=== PATIENT | female | born 1985 | race African-American/Black ===

== ENCOUNTER 2016-05-25 07:54 | Emergency (ER) | payer MEDICAID ==
[2016-05-25 08:57] LABS: HEMATOCRIT 25.9 % (36.0-47.0); HEMOGLOBIN 9.1 g/dL (12.0-15.5); HGB HCT DIFFERENCE 1.4; MEAN CORPUSCULAR HEMOGLOBIN 35.8 pg (27.0-33.4); MEAN CORPUSCULAR HGB CONC 35.2 g/dL (32.0-36.0); MEAN CORPUSCULAR VOLUME 102 fl (80-97); RED BLOOD COUNT 2.55 10^6/uL (3.72-5.28); RED CELL DISTRIBUTION WIDTH 21.7 % (11.5-14.0); WHITE BLOOD COUNT 18.5 10^3/uL (4.0-10.5)
[2016-05-25 09:15] LABS: ALANINE AMINOTRANSFERASE 24 U/L (9-52); ALBUMIN 4.5 g/dL (3.5-5.0); ALKALINE PHOSPHATASE 85 U/L (38-126); ANION GAP 14 (5-19); ASPARTATE AMINO TRANSFERASE 36 U/L (14-36); BILIRUBIN,TOTAL 3.3 mg/dL (0.2-1.3); BLOOD UREA NITROGEN 5 mg/dL (7-20); CALCIUM 10.2 mg/dL (8.4-10.2); CARBON DIOXIDE 26 mmol/L (22-30); CHLORIDE 104 mmol/L (98-107); CREATINE KINASE 26 U/L (30-135); CREATININE RESULT 0.52 mg/dL (0.52-1.25); GLUCOSE 95 mg/dL (75-110); POTASSIUM 4.1 mmol/L (3.6-5.0); TOTAL PROTEIN 8.4 g/dL (6.3-8.2)
[2016-05-25 09:38] LABS: APPEARANCE,URINE SLIGHTLY-CLOUDY; BILIRUBIN,URINE NEGATIVE (NEGATIVE); GLUCOSE, URINE NEGATIVE (NEGATIVE); KETONES,URINE NEGATIVE (NEGATIVE); LEUKOCYTE ESTERASE,URINE NEGATIVE (NEGATIVE); NITRITE,URINE NEGATIVE (NEGATIVE); PROTEIN,URINE 30 mg/dL (NEGATIVE); URINE SPECIFIC GRAVITY 1.012
[2016-05-25] MEDS ORDERED: NORMAL SALINE 1000 ML 1,000 ML IV PRN (09:45)
[2016-05-25 09:56] LABS: ANISOCYTOSIS 2+; BAND NEUTROPHILS % (MANUAL) 2 % (3-5); BASOPHILS % (MANUAL) 0 % (0-2); EOSINOPHILS % (MANUAL) 1 % (0-6); LYMPHOCYTES % (MANUAL) 35 % (13-45); NUCLEATED RED BLOOD CELLS 3 /100 WBC (0); OVALOCYTES SLIGHT; POIKILOCYTOSIS 2+; POLYCHROMASIA 1+; SCHISTOCYTES SLIGHT; TARGET CELLS SLIGHT; TOTAL CELLS COUNTED 100; TOXIC GRANULATION SLIGHT
[2016-05-25] MEDS ORDERED: KETOROLAC TROMETHAMINE INJ/PF 30 MG/1 ML SDV IV ONE (10:04)
--- NOTE | 2016-05-25 10:10 | ER Document Report ---
ED General - General Chief Complaint: Cold Symptoms Stated Complaint: BACK PAIN Notes: Patient is a 31-year-old female with a past medical history significant for sickle cell crisis. Patient states that she has had cough, nasal drainage, body aches and sore throat for one week. He sinus pressure, ear pain, productive cough, wheezing, shortness of breath dyspnea. Patient states that she did not receive flu vaccine and she was given otherwise let the symptoms are intercourse but she woke up this morning with bilateral flank and lower back pain. Which she feels is consistent with sickle cell crisis. States her last episode was about 2 months ago and otherwise has been following up with a neurologist due to the fact that she's had 3 TIAs most recently last one in February. Patient otherwise does not follow up with her PCP quite often and she does not have a publicity consultant. At this time she denies any other associated symptom she denies any abdominal pain urinary symptoms. Last bowel movement was yesterday normal, denies any nausea vomiting diarrhea constipation Past medical history significant for TIAs, sickle cell anemia, hypothyroidism noncompliant with her medication needs a refill Past surgical history denies Social history admits to occasional tobacco and alcohol use and denies drug use. Denies any allergies to medication. TRAVEL OUTSIDE OF THE [place] IN LAST 30 DAYS: No - Related Data Allergies/Adverse Reactions: No Known Allergies Allergy (Verified 05/25/16 08:00) Past Medical History - General Information source: Patient - Social History Smoking Status: Current Every Day Smoker Chew tobacco use (# tins/day): Yes Frequency of alcohol use: Occasional Drug Abuse: None Family History: Reviewed & Not Pertinent Patient has suicidal ideation: No Patient has homicidal ideation: No Renal/ Medical History: Denies: Hx Peritoneal Dialysis - Immunizations Immunizations up to date: Yes Hx Diphtheria, Pertussis, Tetanus Vaccination: No Review of Systems - Review of Systems Constitutional: No symptoms reported EENT: See HPI Cardiovascular: No symptoms reported Respiratory: No symptoms reported Gastrointestinal: No symptoms reported Genitourinary: No symptoms reported Female Genitourinary: No symptoms reported Musculoskeletal: See HPI Skin: No symptoms reported Hematologic/Lymphatic: No symptoms reported Neurological/Psychological: No symptoms reported Physical Exam - Vital signs Vitals: Temp Pulse Resp BP Pulse Ox 97.6 F 78 18 144/87 H 96 05/25/16 07:58 05/25/16 07:58 05/25/16 07:58 05/25/16 07:58 05/25/16 07:58 - Notes Notes: PHYSICAL EXAM GENERAL: Alert, interacts well. HEAD: Normocephalic, atraumatic. EYES: Pupils equal, round, and reactive to light. Extraocular movements intact. ENT: Oral mucosa moist, tongue midline. NECK: Full range of motion. Supple. Trachea midline. LUNGS: Clear to auscultation bilaterally, no wheezes, rales, or rhonchi. No respiratory distress. HEART: Regular rate and rhythm. No murmurs, gallops, or rubs. ABDOMEN: Soft, nondistended, nontender. No guarding, rebound, or rigidity.. Bowel sounds present in all 4 quadrants. EXTREMITIES: Moves all 4 extremities spontaneously. No edema, radial and dorsalis pedis pulses 2/4 bilaterally. No cyanosis. NEUROLOGICAL: Alert and oriented x3. Normal speech. PSYCH: Normal affect, normal mood. SKIN: Warm, dry, normal turgor. No rashes or lesions noted. Course - Re-evaluation Re-evalutation: Patient is a 31-year-old female presents emergency department with symptoms for about one week then with sudden onset back pain this morning. Labs today reveal episode of sickle cell crisis. White blood cell count 18.5 which is consistent with her elevated white blood cell count last time she was seen here. Patient is afebrile, no acute distress and hemodynamically stable otherwise. Reticulocyte count is 12.5 for which is elevated per her most recent visit but consistent with a visit back in October. Chest x-ray didn't reveals a small atelectasis at the base of the left lung but otherwise no concern for pneumonia, no UTI. Patient is otherwise feeling well and would like to go home. Patient is stable for discharge and can follow-up with her primary care provider this week 05/25/16 13:05 Per [facility] protocol and guidelines, this case was discussed with supervising physician Dr. Barbara Ozuna prior to discharge - Vital Signs Vital signs: Temp Pulse Resp BP Pulse Ox 97.6 F 78 18 144/87 H 96 05/25/16 07:58 05/25/16 07:58 05/25/16 07:58 05/25/16 07:58 05/25/16 07:58 - Laboratory Result Diagrams: 02/13/17 08:37 05/25/16 08:37 Laboratory results interpreted by me: 05/25/16 05/25/16 05/25/16 08:37 08:37 09:00 WBC 18.5 H RBC 2.55 L Hgb 9.1 L Hct 25.9 L MCV 102 H MCH 35.8 H RDW 21.7 H Band Neutrophils % 2 L Abs Neuts (Manual) 11.1 H Abs Lymphs (Manual) 6.5 H Retic Count (auto) 12.54 H Absolute Retic 0.320 H BUN 5 L Total Bilirubin 3.3 H Creatine Kinase 26 L Total Protein 8.4 H Urine Protein 30 H Urine Urobilinogen 4.0 H Urine Ascorbic Acid 40 H - Diagnostic Test Radiology reviewed: Image reviewed, Reports reviewed Discharge - Discharge Clinical Impression: Sickle cell anemia with crisis Condition: Good Disposition: HOME, SELF-CARE Additional Instructions: Sickle Cell Crisis You have "sickle cell crisis." Sickle cell disease is caused by abnormal hemoglobin. This hemoglobin can deform red blood cells into a sickle shape. These abnormal blood cells can block blood vessels. This causes the pain of sickle cell crisis. Sickle cell crisis can occur any time. But attacks are more likely with acute infection, dehydration, or altitude change. A crisis usually causes pain in the legs, back, abdomen, and chest. Sometimes the pain may ease and return later. The usual treatment is oxygen, pain medication, IV fluids, and treatment of infection. Attacks may take a couple of days to resolve. Return if the pain becomes more severe, or if there are new symptoms. Prescriptions: Oxycodone HCl/Acetaminophen [Percocet 5-325 mg Tablet] 1 - 2 tab PO Q4H PRN #25 tablet PRN Reason: Referrals: MANDO CELESTE MD [Primary Care Provider] - Follow up as needed TRAM LEWIS MD [ACTIVE STAFF] - Follow up in 1 month
[2016-05-25] MEDS ORDERED: MORPHINE SULFATE 10 MG/ML INJ IV ONE (11:24)
[2016-05-25 13:16] VITALS: BP 140/85
== END 2016-05-25 13:16 | disposition home or self-care (01) ==
LOC: ER 07:54
DX: D57.00 Hb-SS disease with crisis, unspecified (principal); M54.5 Low back pain; R05 Cough; J34.89 Other specified disorders of nose and nasal sinuses; J02.9 Acute pharyngitis, unspecified; R10.9 Unspecified abdominal pain; J98.11 Atelectasis; Z86.73 Personal history of transient ischemic attack (TIA), and cerebral infarction without residual deficits; F17.200 Nicotine dependence, unspecified, uncomplicated
CPT/HCPCS: 99284; 96374; 96375; 36415; 82550; 84443; 85025; 85045; 80053; 81001; 87804; 71020; J1885; J2270; J7030

== ENCOUNTER → 2016-05-25 | Outpatient (CLI) | payer OTHER ==
[2016-05-25 16:28] LABS: HEMATOCRIT 23.3 % (36.0-47.0); HEMOGLOBIN 8.2 g/dL (12.0-15.5); HGB HCT DIFFERENCE 1.3; MEAN CORPUSCULAR HEMOGLOBIN 35.7 pg (27.0-33.4); MEAN CORPUSCULAR VOLUME 102 fl (80-97); RED BLOOD COUNT 2.28 10^6/uL (3.72-5.28); RED CELL DISTRIBUTION WIDTH 20.4 % (11.5-14.0); WHITE BLOOD COUNT 22.3 10^3/uL (4.0-10.5)
== END ==
LOC: OD 15:37
DX: D57.1 Sickle-cell disease without crisis (principal); E07.9 Disorder of thyroid, unspecified
CPT/HCPCS: 36415; 85027

== ENCOUNTER 2016-09-27 17:45 | Emergency (ER) | payer SELFPAY ==
[2016-09-27] MEDS ORDERED: NORMAL SALINE 1000 ML 2,000 ML IV PRN (18:57)
[2016-09-27] MEDS ORDERED: MORPHINE SULFATE 10 MG/ML INJ IV ONE ×2 (18:57→23:32)
--- NOTE | 2016-09-27 18:59 | ER Document Report ---
ED Medical Screen (RME) - General Chief Complaint: Sickle Cell Crisis Stated Complaint: BODY PAIN Time Seen by Provider: 09/27/16 18:09 Mode of Arrival: Ambulatory Information source: Patient TRAVEL OUTSIDE OF THE [place] IN LAST 30 DAYS: No - HPI Patient complains to provider of: Sickle cell crisis Onset: This morning Onset/Duration: Gradual Quality of pain: Achy Severity: Moderate Notes: 09/27/16 18:58 Patient is a 31-year-old female who presents to the emergency room complaining of sickle cell crisis with pain all over, mostly concentrated in the right arm which is where her typical crisis pain is, she denies a cough, no congestion, no fever, no chest pain - Related Data Allergies/Adverse Reactions: No Known Allergies Allergy (Verified 09/27/16 18:55) Past Medical History Renal/ Medical History: Denies: Hx Peritoneal Dialysis - Immunizations Immunizations up to date: Yes Hx Diphtheria, Pertussis, Tetanus Vaccination: No Physical Exam - Vital signs Vitals: Temp Pulse Resp BP Pulse Ox 99.1 F 69 16 133/80 H 93 09/27/16 17:58 09/27/16 17:58 09/27/16 17:58 09/27/16 17:58 09/27/16 17:58 Course - Vital Signs Vital signs: Temp Pulse Resp BP Pulse Ox 99.1 F 69 16 133/80 H 93 09/27/16 17:58 09/27/16 17:58 09/27/16 17:58 09/27/16 17:58 09/27/16 17:58
[2016-09-27 20:23] LABS: ALANINE AMINOTRANSFERASE 25 U/L (9-52); ALBUMIN 4.6 g/dL (3.5-5.0); ALKALINE PHOSPHATASE 74 U/L (38-126); ANION GAP 11 (5-19); ASPARTATE AMINO TRANSFERASE 66 U/L (14-36); BILIRUBIN,DIRECT 0.8 mg/dL (0.0-0.4); BILIRUBIN,TOTAL 2.8 mg/dL (0.2-1.3); BLOOD UREA NITROGEN 7 mg/dL (7-20); CALCIUM 9.6 mg/dL (8.4-10.2); CARBON DIOXIDE 25 mmol/L (22-30); CHLORIDE 108 mmol/L (98-107); CREATININE RESULT 0.62 mg/dL (0.52-1.25); GLUCOSE 82 mg/dL (75-110); HEMOGLOBIN 8.8 g/dL (12.0-15.5); HGB HCT DIFFERENCE 1.4; MEAN CORPUSCULAR HEMOGLOBIN 35.1 pg (27.0-33.4); MEAN CORPUSCULAR HGB CONC 35.1 g/dL (32.0-36.0); MEAN CORPUSCULAR VOLUME 100 fl (80-97); POTASSIUM 4.7 mmol/L (3.6-5.0); RED BLOOD COUNT 2.49 10^6/uL (3.72-5.28); RED CELL DISTRIBUTION WIDTH 20.8 % (11.5-14.0); SODIUM 144.3 mmol/L (137-145); TOTAL PROTEIN 8.2 g/dL (6.3-8.2); WHITE BLOOD COUNT 20.2 10^3/uL (4.0-10.5)
[2016-09-27 20:27] LABS: BASOPHILS % (MANUAL) 0 % (0-2); EOSINOPHILS % (MANUAL) 2 % (0-6); LYMPHOCYTES % (MANUAL) 25 % (13-45); NUCLEATED RED BLOOD CELLS 1 /100 WBC (0); TOTAL CELLS COUNTED 100
[2016-09-27 20:31] LABS: ANISOCYTOSIS 2+; OVALOCYTES SLIGHT; POIKILOCYTOSIS 1+; POLYCHROMASIA 1+; TARGET CELLS 2+; TOXIC GRANULATION SLIGHT
--- NOTE | 2016-09-27 21:08 | ER Document Report ---
ED General - General Chief Complaint: Sickle Cell Crisis Stated Complaint: BODY PAIN Time Seen by Provider: 09/27/16 18:09 Mode of Arrival: Ambulatory Notes: Patient is a 31-year-old female with a past medical history of sickle cell disease that comes emergency department for chief complaint of sickle cell crisis. She reports pain that started in her right arm and now she is starting to hurt over the majority of her body. She denies any particular area being worse than the other at this time. She denies fever, vomiting, shortness of breath, abdominal pain, focal numbness or weakness. She denies smoking. She states that she just overexerted over the past couple of days and she thinks she is dehydrated. She takes folic acid, she did not see a underwear cutter, she has never had a transfusion. She denies any other medical history. Significant other at bedside. TRAVEL OUTSIDE OF THE [place] IN LAST 30 DAYS: No - Related Data Allergies/Adverse Reactions: No Known Allergies Allergy (Verified 09/27/16 18:55) Past Medical History - General Information source: Patient - Social History Smoking Status: Former Smoker Chew tobacco use (# tins/day): No Frequency of alcohol use: None Drug Abuse: None Lives with: Family Family History: Reviewed & Not Pertinent Neurological Medical History: Reports: Other - TIA Renal/ Medical History: Denies: Hx Peritoneal Dialysis Surgical Hx: Negative - Immunizations Immunizations up to date: Yes Hx Diphtheria, Pertussis, Tetanus Vaccination: No Review of Systems - Review of Systems Constitutional: No symptoms reported EENT: No symptoms reported Cardiovascular: No symptoms reported Respiratory: No symptoms reported Gastrointestinal: No symptoms reported Genitourinary: No symptoms reported Female Genitourinary: No symptoms reported Musculoskeletal: See HPI Skin: No symptoms reported Hematologic/Lymphatic: No symptoms reported Neurological/Psychological: No symptoms reported Physical Exam - Vital signs Vitals: Temp Pulse Resp BP Pulse Ox 99.1 F 69 16 133/80 H 93 09/27/16 17:58 09/27/16 17:58 09/27/16 17:58 09/27/16 17:58 09/27/16 17:58 Interpretation: Normal - General General appearance: Appears well, Alert In distress: None - patient alert, conversational, well appearing - HEENT Head: Normocephalic, Atraumatic Eyes: Normal Conjunctiva: Normal Extraocular movements intact: Yes Eyelashes: Normal Pupils: PERRL Mucous membranes: Normal Pharynx: Normal Neck: Normal - Respiratory Respiratory status: No respiratory distress. No: Labored, Retractions, Tachypnea Chest status: Nontender. No: Tender Breath sounds: Normal. No: Decreased air movement, Nonproductive cough, Wheezing Chest palpation: Normal - Cardiovascular Rhythm: Regular. No: Tachycardia Heart sounds: Normal auscultation, S1 appreciated, S2 appreciated Murmur: No - Abdominal Inspection: Normal Distension: No distension Bowel sounds: Normal Tenderness: Nontender. No: Tender, Guarding Organomegaly: No organomegaly - Back Back: Normal, Nontender - I do not appreciate any tenderness. No: Tender - Extremities General upper extremity: Normal inspection, Nontender, Normal ROM, Normal strength, Other - I do not appreciate any tenderness General lower extremity: Normal inspection, Nontender, Normal color, Normal ROM , Normal temperature, Normal weight bearing. No: Juan F's sign - Neurological Neuro grossly intact: Yes Cognition: Normal Orientation: AAOx4 Deshawn Coma Scale Eye Opening: Spontaneous Deshawn Coma Scale Verbal: Oriented Deshawn Coma Scale Motor: Obeys Commands Deshawn Coma Scale Total: 15 Speech: Normal Motor strength normal: LUE, RUE, LLE, RLE Sensory: Normal - Psychological Associated symptoms: Normal affect, Normal mood - Skin Skin Temperature: Warm Skin Moisture: Dry Skin Color: Normal Course - Re-evaluation Re-evalutation: Patient is a well-appearing on exam, clear lungs on auscultation, soft abdomen, full range of motion of extremities, no signs of distress. No fever, no tachycardia, no hypotension. Pulse oxygenation 93%, however patient denies shortness of breath. Chest x-ray performed and shows no acute abnormalities including no evidence of acute chest syndrome. Patient with no tachypnea or labored breathing. On reexamination patient does complain of some pain but continues to be well- appearing. Patient was given pain medication, IV fluids. CBC shows leukocytosis at 20,000, hemoglobin of 8.8, reticulocyte count noted to be elevated but is lower than last time, last time leukocytosis at 18,000. Indirect bilirubin is elevated but not as elevated as last time. Urinalysis unremarkable. Discussed with patient and significant other. They refused to even consider admission to the hospital, she states she actually feels quite good, she would like another dose of pain medication and would like to be treated at home. Patient does not have any evidence of infection, patient does not have any evidence of acute chest syndrome or infection on workup and on my examination. Patient will be referred to hematology, I discussed strict return precautions, patient states understanding and agreement with plan. Unfortunately last pulse oxygenation was 88%, I was not informed of this, I noted this on reviewing the chart, however I find this difficult to believe because of patient's normal ambulation, lack of shortness of breath, normal respirations, clear lungs on auscultation, and unremarkable chest x-ray. Patient has been given strict return precautions to return if she developed any symptoms and she ambulated without any difficulty from the department. - Vital Signs Vital signs: Temp Pulse Resp BP Pulse Ox 98.1 F 76 18 124/80 88 L 09/28/16 00:09 09/28/16 00:09 09/28/16 00:09 09/28/16 00:09 09/28/16 00:09 - Laboratory Result Diagrams: 09/27/16 20:01 09/27/16 20:01 Laboratory results interpreted by me: 09/27/16 09/27/16 09/27/16 20:01 20:01 21:00 WBC 20.2 H RBC 2.49 L Hgb 8.8 L Hct 25.0 L MCV 100 H MCH 35.1 H RDW 20.8 H Metamyelocytes % 1 H Abs Neuts (Manual) 13.3 H Abs Lymphs (Manual) 5.1 H Retic Count (auto) 8.52 H Absolute Retic 0.213 H Chloride 108 H Total Bilirubin 2.8 H Direct Bilirubin 0.8 H AST 66 H Urine Blood SMALL H Urine Urobilinogen 4.0 H Discharge - Discharge Clinical Impression: Sickle cell anemia with crisis, Whole body pain Condition: Stable Disposition: HOME, SELF-CARE Additional Instructions: Your workup is consistent with sickle cell anemia with crisis. Continue to rehydrate, take the pain medication, rest, follow-up with the hematology referral. Return immediately if you worsen in any way including fever, vomiting, numbness or weakness on one side, or any other concerning symptoms. Prescriptions: Oxycodone HCl [Oxy-Ir 5 mg Tablet] 5 mg PO Q4HP PRN #25 tab PRN Reason: Referrals: DREA DESOUZA MD [ACTIVE STAFF] - Follow up in 3-5 days ARIEL BUCKLEY MD [ACTIVE STAFF] - Follow up in 3-5 days
[2016-09-27] MEDS ORDERED: DIPHENHYDRAMINE HCL 50 MG/ML VIAL IV ONE (21:44)
[2016-09-27 22:14] LABS: APPEARANCE,URINE CLEAR; BILIRUBIN,URINE NEGATIVE (NEGATIVE); GLUCOSE, URINE NEGATIVE (NEGATIVE); KETONES,URINE NEGATIVE (NEGATIVE); LEUKOCYTE ESTERASE,URINE NEGATIVE (NEGATIVE); NITRITE,URINE NEGATIVE (NEGATIVE); PROTEIN,URINE NEGATIVE (NEGATIVE); URINE SPECIFIC GRAVITY 1.013
[2016-09-27] MEDS ORDERED: HYDROMORPHONE HCL INJ/PF 2 MG/ML AMPULE IV ONE (22:28)
--- NOTE | 2016-09-27 22:47 | RADIOLOGY REPORT (SQ) ---
EXAM DESCRIPTION: CHEST PA/LAT COMPLETED DATE/TIME: 09/27/2016 10:09 pm REASON FOR STUDY: sickle cell crisis, leukocytosis COMPARISON: Two-view chest 05/25/2016 EXAM PARAMETERS: NUMBER OF VIEWS: two views TECHNIQUE: Digital Frontal and Lateral radiographic views of the chest acquired. RADIATION DOSE: NA LIMITATIONS: none FINDINGS: LUNGS AND PLEURA: Chronic pleural-parenchymal scarring in the left lateral costophrenic woodward lcus. Chronic scarring at the right lung base. No acute infiltrates. No pleural effusion or pneumothorax. MEDIASTINUM AND HILAR STRUCTURES: No masses or contour abnormalities. HEART AND VASCULAR STRUCTURES: Heart normal size. No evidence for failure. BONES: No acute findings. HARDWARE: None in the chest. OTHER: No other significant finding. IMPRESSION: Chronic scarring at both lung bases. No acute findings. TECHNICAL DOCUMENTATION: JOB ID: [id number] [employer]- All Rights Reserved
[2016-09-28] MEDS ORDERED: HYDROCODONE/ACETAMINOPHEN 5-325 MG 6 TAB/DSPK PO PRN (00:12)
[2016-09-28 00:19] VITALS: BP 124/80
== END 2016-09-28 00:15 | disposition home or self-care (01) ==
LOC: ER 17:45
DX: D57.00 Hb-SS disease with crisis, unspecified (principal); R52 Pain, unspecified; D72.829 Elevated white blood cell count, unspecified; Z79.899 Other long term (current) drug therapy; Z87.891 Personal history of nicotine dependence; Z86.73 Personal history of transient ischemic attack (TIA), and cerebral infarction without residual deficits
CPT/HCPCS: 96376; 99283; 96361; 96374; 96375; 36415; 85025; 81025; 85045; 80053; 81001; 71020; J1200; J2270 ×2; J1170; J7030

== ENCOUNTER → 2017-01-07 | Outpatient (CLI) | payer SELFPAY ==
--- NOTE | 2017-01-07 15:10 | RADIOLOGY REPORT (SQ) ---
EXAM DESCRIPTION: U/S [id number] TRNABD 1GES W/ODOP COMPLETED DATE/TIME: 01/07/2017 2:53 pm REASON FOR STUDY: ENCOUNTER FOR SUPERVISION OF OTHER NORMAL , 1ST TRIMESTER (Z34.81) Z34.81 ENCOUNTER FOR SUPRVSN OF NORMAL , FIRST TRIM COMPARISON: None. TECHNIQUE: Transvaginal and transabdominal static and realtime grayscale images acquired of the pelv is. Additional selected spectral and color Doppler images recorded. All images stored on PACs. bHCG: Not applicable. LIMITATIONS: None. FINDINGS: UTERUS: No masses. No anomalies. GESTATIONAL SAC: Intrauterine gestational sac corresponding to a 6 week 4 day gestation. YOLK SAC: No. POLE: No. RIGHT ADNEXA: Normal ovary with normal vascular flow. No adnexal free fluid. 2.5 cm cyst. LEFT ADNEXA: Normal ovary with normal vascular flow. No adnexal free fluid. No adnexal masses. FREE FLUID: None. OTHER: No other significant finding. IMPRESSION: POSSIBLE EARLY INTRAUTERINE . 6 WEEK 4 DAY GESTATIONAL SAC. NO POLE OR YOLK SAC VISUALIZED. RECOMMEND F/U ULTRASOUND IN SEVERAL DAYS TO CONFIRM NORMAL DEVELOPMENT. Trimester of : First - 0 to 13 weeks. TECHNICAL DOCUMENTATION: JOB ID: [id number] [employer]- All Rights Reserved
== END ==
LOC: RAD 14:01
PROVIDERS: ATTEND Nurse Practitioner Women's Health
DX: Z34.81 Encounter for supervision of other normal pregnancy, first trimester (principal)
CPT/HCPCS: 76801

== ENCOUNTER → 2017-12-09 | Outpatient (CLI) | payer MEDICAID ==
[2017-12-09 15:52] LABS: CHLAM PCR NOT DETECTED (NOT DETECT); GON PCR NOT DETECTED (NOT DETECT)
== END ==
LOC: OD 12:11
PROVIDERS: ATTEND Nurse Practitioner Acute Care
DX: R30.0 Dysuria (principal)
CPT/HCPCS: 87086; 87088; 87186; 87491; 87591

== ENCOUNTER 2018-05-01 21:40 | Emergency (ER) | payer SELFPAY ==
[2018-05-01] MEDS ORDERED: NORMAL SALINE 1000 ML 1,000 ML IV ONE (22:12)
[2018-05-01] MEDS ORDERED: HYDROMORPHONE HCL INJ/PF 2 MG/ML AMPULE IV ONE ×2 (22:13→23:15)
[2018-05-01] MEDS ORDERED: ONDANSETRON HCL INJ/PF 4 MG/2 ML SDV IV ONE (22:13)
--- NOTE | 2018-05-01 22:14 | ER Document Report ---
ED General - General Chief Complaint: Sickle Cell Crisis Stated Complaint: SICKLE CELL Time Seen by Provider: 05/01/18 22:12 Notes: Patient is a 32-year-old female with sickle cell disease that presents to the emergency department for chief complaint of pain all over. Patient states she thinks she is having a flare of her sickle cell pain crisis, which he typically gets body aches all over, and has shortness of breath, she denies having any chest pain at this time. Her symptoms started in the evening yesterday, have persisted through today, so she decided come to the emergency department. She denies having any lightheadedness or feeling like she may pass out, denies abdominal pain, nausea, vomiting, dysuria or hematuria. Denies having any fevers, chills, night sweats or other concerning symptoms. She currently rates her pain as a 9 out of 10, describes as an aching sensation over her whole body. Past Medical History: Sickle cell disease Past Surgical History: Denies surgical history Social History: Former smoker, rare alcohol use, denies illicit drug use. Family History: Reviewed and noncontributory for presenting illness Allergies: Reviewed, see documented allergy list. REVIEW OF SYSTEMS: Other than noted above, the 12 point review of systems was reviewed with the patient and were negative, all pertinent findings are included in the HPI. PHYSICAL EXAMINATION: Vital signs reviewed, nursing noted reviewed. GENERAL: Patient appears mildly uncomfortable, but no acute or immediate distress. HEAD: Atraumatic, normocephalic. EYES: Eyes appear normal, extraocular movements intact, sclera anicteric, conjunctiva are normal. ENT: nares patent, oropharynx clear without exudates. Moist mucous membranes. NECK: Normal range of motion, supple without lymphadenopathy LUNGS: Breath sounds clear to auscultation bilaterally and equal. No wheezes rales or rhonchi. HEART: Regular rate and rhythm without murmurs ABDOMEN: Soft, nontender, normoactive bowel sounds. No rebound, guarding, or rigidity. No masses appreciated. EXTREMITIES: Nontender, good range of motion, no pitting or edema. NEUROLOGICAL: No focal neurological deficits. Moves all extremities spontaneously Motor and sensory grossly intact on exam. PSYCH: Normal mood, normal affect. SKIN: Warm, Dry, normal turgor, no rashes or lesions noted on exposed skin TRAVEL OUTSIDE OF THE [place] IN LAST 30 DAYS: No - Related Data Allergies/Adverse Reactions: No Known Allergies Allergy (Verified 09/27/16 18:55) Past Medical History - Social History Smoking Status: Never Smoker Family History: Reviewed & Not Pertinent Renal/ Medical History: Denies: Hx Peritoneal Dialysis - Immunizations Immunizations up to date: Yes Hx Diphtheria, Pertussis, Tetanus Vaccination: No Physical Exam - Vital signs Vitals: Temp Pulse Resp BP Pulse Ox 99.3 F 80 18 109/59 L 89 L 05/01/18 21:57 05/01/18 21:57 05/01/18 21:57 05/01/18 21:57 05/01/18 21:57 Course - Re-evaluation Re-evalutation: Patient seen and examined vital signs reviewed. Laboratory data and imaging were ordered as appropriate for the patient's presenting symptoms and complaint, with consideration of any critical or life threatening conditions that may be associated with their obtained history and exam as noted above. Patient was treated with IV fluids, IV Dilaudid 1 mg, and IV Zofran 4 mg Results were reviewed when available and demonstrated baseline blood work, baseline leukocytosis, and anemia, reticulocyte count was up, and not down, no aplastic crisis, chest x-ray was stable, no concern for acute chest syndrome in this patient. Patient was treated with an additional 1 mg of IV Dilaudid, and her pain was improving. She was given supplemental oxygen as well to help with her occlusive crisis. The patient was re-evaluated and was stable, and was discharged home with [place], and Zofran if needed for nausea advised to follow-up with her primary care physician Evaluation was most consistent with sickle cell pain crisis Results were discussed with the patient at this point, after careful consideration I feel that that patient can be discharged from the emergency department, the patient was educated treatments and reasons to return to the emergency department based on their presumed diagnosis as noted above, they were advised to followup with a primary care physician in 2-3 days. Patient was agreeable to plan of care. *Note is created using voice recognition software and may contain spelling, syntax or grammatical errors. Laboratory 05/01/18 05/01/18 05/01/18 22:40 22:40 22:40 WBC 24.6 H RBC 2.22 L Hgb 8.3 L Hct 22.9 L MCV 103 H MCH 37.3 H MCHC 36.2 H RDW 19.9 H Plt Count 346 Total Counted 100 Seg Neutrophils % Not Reportable Seg Neuts % (Manual) 84 H Lymphocytes % Not Reportable Lymphocytes % (Manual) 11 L Monocytes % Not Reportable Monocytes % (Manual) 5 Eosinophils % Not Reportable Eosinophils % (Manual) 0 Basophils % Not Reportable Basophils % (Manual) 0 Absolute Neutrophils Not Reportable Abs Neuts (Manual) 20.7 H Absolute Lymphocytes Not Reportable Abs Lymphs (Manual) 2.7 Absolute Monocytes Not Reportable Abs Monocytes (Manual) 1.2 Absolute Eosinophils Not Reportable Absolute Eos (Manual) 0.0 Absolute Basophils Not Reportable Abs Basophils (Manual) 0.0 Toxic Granulation 1+ Toxic Vacuolation PRESENT Platelet Comment ADEQUATE Poikilocytosis 2+ Anisocytosis 2+ Sickle Cells 2+ Target Cells 2+ Ovalocytes 2+ Retic Count (auto) 9.11 H Absolute Retic 0.202 H Sodium 141.8 Potassium 4.2 Chloride 106 Carbon Dioxide 27 Anion Gap 9 BUN 3 L Creatinine 0.38 L Est GFR ( Amer) > 60 Est GFR (Non-Af Amer) > 60 Glucose 130 H Calcium 9.2 Total Bilirubin 4.4 H Direct Bilirubin 1.0 H Neonat Total Bilirubin Not Reportable Neonat Direct Bilirubin Not Reportable Neonat Indirect Bili Not Reportable AST 97 H ALT 41 Alkaline Phosphatase 68 Total Protein 7.5 Albumin 4.7 Serum HCG, Qual NEGATIVE Chest X-Ray 05/01/18 22:17 IMPRESSION: No acute cardiopulmonary disease. copyright 2010 [employer]- All Rights Reserved - Vital Signs Vital signs: Temp Pulse Resp BP Pulse Ox 99.3 F 80 15 117/74 100 05/01/18 21:57 05/01/18 21:57 05/01/18 22:40 05/01/18 22:40 05/01/18 22:40 - Laboratory Result Diagrams: 05/01/18 22:40 05/01/18 22:40 Laboratory results interpreted by me: 05/01/18 05/01/18 22:40 22:40 WBC 24.6 H RBC 2.22 L Hgb 8.3 L Hct 22.9 L MCV 103 H MCH 37.3 H MCHC 36.2 H RDW 19.9 H Seg Neuts % (Manual) 84 H Lymphocytes % (Manual) 11 L Abs Neuts (Manual) 20.7 H Retic Count (auto) 9.11 H Absolute Retic 0.202 H BUN 3 L Creatinine 0.38 L Glucose 130 H Total Bilirubin 4.4 H Direct Bilirubin 1.0 H AST 97 H Discharge - Discharge Clinical Impression: Sickle cell pain crisis Condition: Stable Disposition: HOME, SELF-CARE Instructions: Sickle Cell Crisis (OM) Additional Instructions: Please take the provided medications as needed for pain, if your symptoms are worsening or not improving, do not hesitate to return to the emergency department. Referrals: FAUSTO ANDERSON [facility]OVER [Primary Care Provider] - Follow up in 3-5 days
[2018-05-01 22:59] LABS: ABSOLUTE RETICS # 0.202 10^6/uL (0.028-0.122); HEMATOCRIT 22.9 % (36.0-47.0); HEMOGLOBIN 8.3 g/dL (12.0-15.5); MEAN CORPUSCULAR HEMOGLOBIN 37.3 pg (27.0-33.4); MEAN CORPUSCULAR HGB CONC 36.2 g/dL (32.0-36.0); MEAN CORPUSCULAR VOLUME 103 fl (80-97); PLATELET COUNT 346 10^3/uL (150-450); RED BLOOD COUNT 2.22 10^6/uL (3.72-5.28); RED CELL DISTRIBUTION WIDTH 19.9 % (11.5-14.0); RETICULOCYTE COUNT (AUTO) 9.11 % (0.66-2.85); WHITE BLOOD COUNT 24.6 10^3/uL (4.0-10.5)
[2018-05-01 23:10] LABS: ALANINE AMINOTRANSFERASE 41 U/L (9-52); ALBUMIN 4.7 g/dL (3.5-5.0); ALKALINE PHOSPHATASE 68 U/L (38-126); ANION GAP 9 (5-19); ASPARTATE AMINO TRANSFERASE 97 U/L (14-36); BILIRUBIN,TOTAL 4.4 mg/dL (0.2-1.3); BLOOD UREA NITROGEN 3 mg/dL (7-20); CALCIUM 9.2 mg/dL (8.4-10.2); CARBON DIOXIDE 27 mmol/L (22-30); CHLORIDE 106 mmol/L (98-107); GLUCOSE 130 mg/dL (75-110); POTASSIUM 4.2 mmol/L (3.6-5.0); SODIUM 141.8 mmol/L (137-145); TOTAL PROTEIN 7.5 g/dL (6.3-8.2)
[2018-05-01 23:20] LABS: ABSOLUTE LYMPHOCYTES# (MANUAL) 2.7 10^3/uL (0.5-4.7); ABSOLUTE MONOCYTES # (MANUAL) 1.2 10^3/uL (0.1-1.4); ABSOLUTE NEUTROPHILS# (MANUAL) 20.7 10^3/uL (1.7-8.2); BASOPHILS % (MANUAL) 0 % (0-2); EOSINOPHILS % (MANUAL) 0 % (0-6); LYMPHOCYTES % (MANUAL) 11 % (13-45); MONOCYTES % (MANUAL) 5 % (3-13); SEGMENTED NEUTROPHILS % (MAN) 84 % (42-78); TOTAL CELLS COUNTED 100
[2018-05-01 23:22] LABS: TOXIC GRANULATION 1+; TOXIC VACUOLATION PRESENT
[2018-05-01 23:24] LABS: ANISOCYTOSIS 2+; OVALOCYTES 2+; POIKILOCYTOSIS 2+
--- NOTE | 2018-05-01 23:24 | RADIOLOGY REPORT (SQ) ---
EXAM DESCRIPTION: XR CHEST 1 VIEW COMPLETED DATE/TME: 05/01/2018 22:17 CLINICAL HISTORY: 32 years, Female, dyspnea, sickle cell COMPARISON: None. NUMBER OF VIEWS: One TECHNIQUE: AP view of the chest LIMITATIONS: None. FINDINGS: The lungs are clear. There are no pleural abnormalities. The cardiac silhouette and pulmonary vessels are normal. IMPRESSION: No acute cardiopulmonary disease. copyright 2010 [employer]- All Rights Reserved
[2018-05-01 23:25] LABS: TARGET CELLS 2+
[2018-05-01 23:26] LABS: SICKLE RED CELLS 2+
[2018-05-01 23:45] LABS: PLATELET COMMENT ADEQUATE
[2018-05-01] MEDS ORDERED: ONDANSETRON ODT 4 MG TAB (6 TAB/ER DISP) PO PRN (23:48)
[2018-05-01] MEDS ORDERED: HYDROCODONE/ACETAMINOPHEN 5-325 MG (6 TAB/ER DISP) PO PRN (23:48)
[2018-05-02 00:27] VITALS: BP 119/68
== END 2018-05-02 00:27 | disposition home or self-care (01) ==
LOC: ER 21:40
DX: D57.00 Hb-SS disease with crisis, unspecified (principal); R52 Pain, unspecified; R06.02 Shortness of breath; D72.829 Elevated white blood cell count, unspecified; Z87.891 Personal history of nicotine dependence
CPT/HCPCS: 96376; 99284; 96374; 96375; 36415; 84703; 85025; 85045; 80053; 71045; J1170; J2405; J7030